=== PATIENT | male | born 1930 ===

== ENCOUNTER 2019-04-03 13:50 | Inpatient (IN) | payer MEDICARE, OTHER ==
[~2019-04-03] VITALS: Ht 180.3 cm; Wt 64.5 kg
--- NOTE | 2019-04-03 13:30 | NUR ---
PT ADMITTED FROM [facility] ER FOR ALTERED THOUGHT PROCESS. PER REPORT PT IS HAVING HALLUCINATIONS, INCREASED CONFUSION, AND NONCOMPLIANT WITH MEDS. PT IS FULL CODE. CODEWORD IS 0426. PT HAS TOP PLATE DENTURES. NO HEARING AIDS. HAS GLASSES BUT REFUSES TO WEAR THEM. FLU SHOT 2019. PNUE SHOT 2016.
[2019-04-03] MEDS ORDERED: PLAVIX75 MG PO (18:28)
[2019-04-03] MEDS ORDERED: ELIQUIS5 MG PO (18:28)
[2019-04-03] MEDS ORDERED: LISINOPRIL5 MG PO (18:29)
[2019-04-03] MEDS ORDERED: GLUCOPHAGE1000 MG PO (18:29)
[2019-04-03] MEDS ORDERED: GLIMEPIRIDE2 MG PO (18:30)
[2019-04-03] MEDS ORDERED: LOPRESSOR25 MG PO (18:30)
[2019-04-03] MEDS ORDERED: PEPCID AC20 MG PO (18:31)
[2019-04-03] MEDS ORDERED: SEROQUEL50 MG PO (18:32)
--- NOTE | 2019-04-03 19:47 | NUR ---
RECEIVED IN DAYROOM. SITTING IN A RECLINING CHAIR AT THE TABLE. CALM AND COOPERATIVE WITH CARE AND ASSESSMENT. CONFUSED. REDIRECT AND REORIENT NEEDED. CONTINUES TO SIT QUIETLY IN RECLINER. CONTINUE PLAN OF CARE
[2019-04-03 22:55] VITALS: BP 138/78
[2019-04-04 05:34] VITALS: BP 131/64
[2019-04-04 06:20] LABS: BASOPHILS 0.5 % (0-2); EOSINOPHILS 1.2 % (0-7); HEMATOCRIT 41.7 % (42.0-54.0); HEMOGLOBIN 13.9 g/dL (13.5-17.5); IMMATURE GRANULOCYTES 0.1 % (0-5); LYMPHOCYTES 20.2 % (15-50); MCH 31.1 pg (26.0-34.0); MCHC 33.3 g/dL (31.0-37.0); MCV 93.3 fL (80.0-100.0); MEAN PLATELET VOLUME 9.1 fL (7.4-10.4); MONOCYTES 10.9 % (2-11); NEUTROPHILS 67.1 % (40-80); PLATELET COUNT 362 10x3/uL (130-400); RBC 4.47 10x6/uL (4.20-6.10); RDW 13.3 % (11.5-14.5); WBC 7.6 10x3/uL (4.8-10.8)
[2019-04-04 06:59] LABS: ALBUMIN 3.4 g/dL (3.4-5.0); ALKALINE PHOSPHATASE 111 U/L (46-116); ALT (SGPT) 39 U/L (10-68); BILIRUBIN - TOTAL 1.07 mg/dL (0.2-1.3); CALC OSMOLALITY 291 mosm/kg (275-300); CALCIUM 9.5 mg/dL (8.5-10.1); CARBON DIOXIDE 26.5 mmol/L (21.0-32.0); CHLORIDE - SERUM 104 mmol/L (98-107); CHOLESTEROL, TOTAL 235 mg/dL (0-200); GLUCOSE 213 mg/dL (74-106); HDL CHOLESTEROL 59 mg/dL (32-96); LDL CHOLESTEROL 163 mg/dL (0-100); LDL-HDL RATIO 2.8 ratio (1.5-3.5); PROTEIN - SERUM 7.2 g/dL (6.4-8.2); SODIUM 141 mmol/L (136-145); THYROID STIMULATING HORMONE 0.73 uIU/mL (0.36-3.74); TRIGLYCERIDE 65 mg/dL (30-200); UREA NITROGEN 27 mg/dL (7-18); eGFR NON AFRICAN AMERICAN 75 mL/min (90-120)
[2019-04-04 08:00] VITALS: BP 126/61
[2019-04-04 20:30] VITALS: BP 129/58
--- NOTE | 2019-04-05 00:09 | NUR ---
REC'D SITTING IN THE DAYROOM. NO INSIGHT INTO THE REASON FOR HOSPITALIZATION. ORIENTED TO SELF ONLY. ADMINISTER MEDS AND MONITOR COMPLIANCE. REORIENT NEEDED. MED COMPLIANT. POOR REORENTATION DUE TO IMPAIRED ABILITY TO PROCESS AND RETAIN INFORMATION. CONTINUE POC AND PROVIDE SAFE ENVIRONMENT.
[2019-04-05 08:11] LABS: RAPID PLASMA REAGIN Non Reactive (Non Reactive)
[2019-04-05 08:51] VITALS: BP 148/77
--- NOTE | 2019-04-05 14:34 | PSY ---
PATIENT NAME:ARUNA REECE MEDICAL RECORD: [id number] : [birth year] LOCATION:[facility] ADMISSION DATE: 04/03/19 ACCOUNT: [id number] PSYCHIATRIC EVALUATION DATE OF EVALUATION: 04/04/19 IDENTIFYING DATA: The patient is 88 years old and he is admitted to the hospital on a voluntary basis. CHIEF COMPLAINT: Confusion. HISTORY OF PRESENT ILLNESS: The patient comes from home, but prior to being at home, he was at [facility]. Apparently, he was admitted for observation because of the confusion. At that time, he was noncompliant with medications found to be actively hallucinating and significantly confused. PAST MEDICAL HISTORY: Largely unknown as the patient is an extremely poor historian. He is on Glucophage and Amaryl, so I presume he has diabetes of course and he is also on metoprolol, so I presume he has hypertension. He also takes blood thinners, specifically Plavix for reasons that are unknown to me. He cannot explain. PAST PSYCHIATRIC HISTORY: Unknown. FAMILY HISTORY: Unknown. SOCIAL HISTORY: The patient is unmarried. He says he has no children. He denies that he has ever been an alcoholic or a user of drugs, but he is a very unreliable historian and is clearly quite confused and inattentive. MENTAL STATUS EXAMINATION: The patient is awake, alert and oriented to person only. His mood is flat. His affect is constricted. Thought processes are circumstantial. Memory, concentration, and abstraction abilities are moderately impaired and he denies that he would seek to harm himself or others as well as psychotic symptoms. ASSETS: Supportive family members. LIABILITIES: Limited insight. 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 AXIS II: None. AXIS III: Diabetes and hypertension. AXIS IV: Moderate. AXIS V: Global assessment of functioning is 30. PLAN: At this time, the patient is admitted to the hospital for a comprehensive medical, psychological, and social evaluation. He will be treated with both mood stabilizing and memory enhancing medications. His long-term prognosis is guarded. TRANSINT:[id number] Voice Confirmation ID: [id number] DOCUMENT ID: [id number] BENOIT GEORGE MD at 1434 CC: [id number] DICTATION DATE: 04/04/19 1628 TOOL GRINDER: 04/04/19 1649 ADM IN [facility] [address] [id number]
[2019-04-05 14:59] VITALS: Ht 180.3 cm; Wt 64.5 kg
[2019-04-05 15:42] LABS: APPEARANCE TURBID (CLEAR); BILIRUBIN NEGATIVE (NEGATIVE); COLOR YELLOW (YELLOW); GLUCOSE 250 mg/dL (NEGATIVE); KETONE SMALL mg/dL (NEGATIVE); NITRITE NEGATIVE (NEGATIVE); PROTEIN 2+ mg/dL (NEGATIVE); UROBILINOGEN NORMAL (NORMAL)
[2019-04-05 15:43] LABS: BACTERIA MODERATE /hpf (NEGATIVE); EPITHELIAL CELLS NSEEN /hpf (0-5); RED CELLS - URINE >50 /hpf (0-5); WHITE CELLS - URINE NSEEN /hpf (NEGATIVE)
--- NOTE | 2019-04-05 16:13 | NUR ---
Encouraging the patient to drink fluids.
--- NOTE | 2019-04-05 16:33 | NUR ---
B) The patient is awake and alert, he is pleasant. He is confused and has poor insight into his situation. Encourage the patient to drink fluids. He is unsteady and currently sitting in the day room. I) Provide presbed meds. R) The patient is compliant with meds. P) Continue POC.
[2019-04-05 20:20] VITALS: BP 110/50
--- NOTE | 2019-04-05 23:39 | NUR ---
REC'D PATIENT SITTING IN A CHAIR IN THE DAYROOM. ORIENTED TO SELF ONLY. RESTLESS AND MOVES ABOUT IN HIS CHAIR. WHEN ASKED PATIENT IF HE KNOWS WHERE HE IS HE REPLIES "RIGHT ABOUT IN HERE SOMEWHERE. ANSWERED ONE QUESTION APPROPRIATELY. WHEN ASKED HOW ARE YOU FEELING PT RELATED "NOT SO HOT." ADMINISTER MEDS AND MONITOR COMPLIANCE. REORIENT NEEDED. MED COMPLIANT. POOR REORIENTAION DUE TO IMPAIRED ABILITY TO COMPREHEND AND RETAIN INFORMATION. CONTINUE POC AND PROVIDE SAFE ENVIRONMENT.
[2019-04-06 09:31] VITALS: BP 151/88
--- NOTE | 2019-04-06 14:11 | NUR ---
The patient is pleasant, he is confused and he is is oriented to his name, he has poor insight into his situation. He has not shown any hallucinating behavior today. No pointing at objects or talking to unseen others. He is in a gerichair. Provide prescribed meds. The patient is compliant with meds, he takes his meds whole, but he does well with applesauce as he was trying to chew the pills. Continue POC.
--- NOTE | 2019-04-06 15:57 | PN ---
PATIENT:ARUNA REECE MEDICAL RECORD: [id number] LOCATION:[facility] ADMISSION DATE: 04/03/19 PROGRESS NOTE DATE OF SERVICE: 04/05/2019 SUBJECTIVE: The patient's case was discussed with staff. He has no new complaint. OBJECTIVE: The patient is in good behavioral control with limited insight about his condition. ASSESSMENT: Dementia. PLAN: Current medicines and therapies have been reviewed. The patient has not been combative here nor have I observed hallucinations. I am going to start him on Namenda for his memory impairment. He will be monitored for clinical changes associated with its use. TRANSINT:[id number] Voice Confirmation ID: [id number] DOCUMENT ID: [id number] BENOIT GEORGE MD at 1557 CC: [id number] DICTATION DATE: 04/05/191724 GED PREPARATION TEACHER: 04/05/19 1833 ADM IN [facility] [address] [id number]
[2019-04-06 19:40] VITALS: BP 120/72
--- NOTE | 2019-04-07 02:19 | NUR ---
B) Patient is alert and oriented to self, very confused, talks in wordsalad, I) Administered scheduled medications as ordered, monitored for safety, R) Medication compliant, no hallucinations noted this shift P) COntinue plan of care.
[2019-04-07 08:29] VITALS: BP 109/57
--- NOTE | 2019-04-07 11:50 | NUR ---
The patient is awake, he is quiet, and calm, he has not shown any aggression or any hallucinations. He can assist with transfers. Provide prescribed meds. The patient is compliant with meds. Monitor the patients behavior.
--- NOTE | 2019-04-07 12:38 | PN ---
PATIENT:ARUNA REECE MEDICAL RECORD: [id number] LOCATION:[facility] ADMISSION DATE: 04/03/19 PROGRESS NOTE DATE OF SERVICE: 04/06/2019 SUBJECTIVE: The patient's case was discussed with staff. He has no new complaint. OBJECTIVE: The patient is in good behavioral control. He has poor insight about his condition. ASSESSMENT: Dementia. PLAN: Current medicines have been reviewed and will be maintained. Long-term prognosis is guarded. TRANSINT:[id number] Voice Confirmation ID: [id number] DOCUMENT ID: [id number] BENOIT GEORGE MD at 1238 CC: [id number] DICTATION DATE: 04/06/19 1618 SHAPE BRICK MOLDER: 04/06/192008 ADM IN [place] [id number] [place] [address]
[2019-04-07 20:00] VITALS: BP 90/45
--- NOTE | 2019-04-07 23:36 | NUR ---
B) patient is alert and oriented to self, very confused, wordsalad, hallucinations (visual), restlessness, I) Administered scheduled medications as ordered, monitored closely for safety R) Mediation compliant, resting now quietly in his bed, P) Continue plan of care.
[2019-04-08 08:00] VITALS: BP 111/78
--- NOTE | 2019-04-08 10:00 | NUR ---
B) PATIENT IS AWAKE AND ALERT TO SELF, SPEAKS IN WORD-SALAD. I) ADMINISTERED SCHEDULED MEDICATION. MONIOR CLOSELY FOR SAFETY. REDIRECT AND REORIENT NEEDD. R) MEDICATION COMPLIANT. RESTING IN RECLINER, NO HALLUCINATIONS NOTED. P) CONTINUE PLAN OF CARE.
--- NOTE | 2019-04-08 19:47 | NUR ---
RECEIVED IN BEDROOM. RESTING IN BED WITH EYES OPEN. CALM AND COOPERATIVE WITH CARE AND ASSESSMENT. NO SIGNS OF HALLUCINATIONS AT THIS TIME. REDIRECT AND REORIENT NEEDED. RESTING IN BED WITH EYES CLOSED. CONTINUE PLAN OF CARE
[2019-04-08 20:09] VITALS: BP 120/57
[2019-04-08 20:44] VITALS: BP 120/57
[2019-04-09 09:36] VITALS: BP 115/70
--- NOTE | 2019-04-09 14:50 | NUR ---
Nutrition Follow-up: Diet: Diabetic/Cardiac PO intake: ~29% average x last 9 meals Last BM: 04/09/19. WT: 143# (04/08/19); Admit wt: 150# (04/03/19) Significant meds: megace, SSI, metformin, glimepiride. Labs: Glu 129 mg/dL Continue current diet. May consider liberalizing diet to just diabetic to encourage PO intake. Continue megace as medically feasible. Will add oral nutrition supplements to diet order. Encourage PO intake. RD following.
--- NOTE | 2019-04-09 15:04 | NUR ---
CALM, QUIET, APPETITE POOR, VERY CONFUSED, NO ADVERSE BEHAVIORS NOTED, CONT POC DIRECTED.
--- NOTE | 2019-04-09 15:13 | PN ---
PATIENT:ARUNA REECE MEDICAL RECORD: [id number] LOCATION:[facility] ADMISSION DATE: 04/03/19 PROGRESS NOTE DATE OF SERVICE: 04/08/2019 SUBJECTIVE: The patient's case was discussed with staff. He has no new complaint. OBJECTIVE: The patient denies intent to harm himself or others. He is tolerating his medications reasonably well. ASSESSMENT: Dementia. PLAN: Current medicines have been reviewed. I am going to maintain them. His long-term prognosis is guarded. TRANSINT:[id number] Voice Confirmation ID: [id number] DOCUMENT ID: [id number] BENOIT GEORGE MD at 1513 CC: [id number] DICTATION DATE: 04/08/19 1428 INSIDE PARTS SALES: 04/08/19 1537 ADM IN [place] [id number] [place] [address]
--- NOTE | 2019-04-09 15:13 | PN ---
PATIENT:ARUNA REECE MEDICAL RECORD: [id number] LOCATION:[facility] ADMISSION DATE: 04/03/19 PROGRESS NOTE DATE OF SERVICE: 04/07/2019 SUBJECTIVE: The patient's case was discussed with staff. He has no new complaint. OBJECTIVE: The patient has had no acute evidence of psychosis today. He is certainly advanced in his dementia and needs 42-ggck-h-day supervision. ASSESSMENT: Dementia. PLAN: Supportive and educational interventions were made. Long-term prognosis is guarded. TRANSINT:[id number] Voice Confirmation ID: [id number] DOCUMENT ID: [id number] BENOIT GEORGE MD at 1513 CC: [id number] DICTATION DATE: 04/07/19 1249 WATER AND GAS HELPER: 04/07/19 1422 ADM IN [place] [id number] [place] [address]
[2019-04-09 23:37] VITALS: BP 79/34
--- NOTE | 2019-04-10 00:20 | NUR ---
RECEIVED IN PATIENT ROOM. RESTING IN BED WITH EYES CLOSED. RESPONDS TO VOICE. CALM AND COOPERATIVE WITH CARE AND ASSESSMENT. NO SIGNS OF HALLUCINATIONS. REDIRECT AND REORIENT NEEDED. RESTING IN BED WITH EYES CLOSED AT THIS TIME. CONTINUE PLAN OF CARE.
--- NOTE | 2019-04-10 09:00 | NUR ---
PATIENT IS ALERT TO PERSON, CALM AND COOPERATIVE WITH CARE AND ASSESSMENT. COMPLIANT WITH MEDICATIONS. CONTINUE POC.
[2019-04-10 09:25] VITALS: BP 114/47
--- NOTE | 2019-04-10 15:04 | PN ---
PATIENT:ARUNA REECE MEDICAL RECORD: [id number] LOCATION:[facility] ADMISSION DATE: 04/03/19 PROGRESS NOTE DATE OF SERVICE: 04/09/2019 SUBJECTIVE: The patient's case was discussed with staff. He has no new complaint. OBJECTIVE: The patient denies intent to harm himself or others. He is quite impaired cognitively. ASSESSMENT: Dementia. PLAN: The patient's hallucinations seemed to have improved. In fact, I do not notice any since this weekend. He will be maintained on current medicines. His long-term prognosis is guarded. TRANSINT:[id number] Voice Confirmation ID: [id number] DOCUMENT ID: [id number] BENOIT GEORGE MD at 1504 CC: [id number] DICTATION DATE: 04/09/19 1535 WOOD DOWEL MACHINE OPERATOR: 04/09/19 1847 ADM IN [id number] [place] [address]
--- NOTE | 2019-04-10 20:15 | NUR ---
RECEIVED IN BEDROOM RESTINGIN BED WITH EYES OPEN. CONFUSED. CALM AND COOPERATIVE WITH CARE AND ASSESSMENT. NO SIGNS OF HALLUCINATIONS AT THIS TIME. REDIRECT AND REORIENT NEEDED. CONTINUES TO REST IN BED WITH EYES OPEN. CONTINUE PLAN OF CARE
[2019-04-11 09:00] VITALS: BP 99/71
--- NOTE | 2019-04-11 11:03 | NUR ---
THE PATIENT IS SLEEPY THIS AM, HE WAS NOT ABLE TO WAKE UP FOR HIS BREAKFAST OR AM MEDS. HE IS NOT HALLUCINATING. HE IS NOT AGGRESSIVE. PROVIDE PRESCRIBED MEDS. MONITOR HIS BEHAVIOR. THE PATIENT CONTINUES TO SLEEP. CONTINUE POC.
--- NOTE | 2019-04-11 12:33 | PN ---
PATIENT:ARUNA REECE MEDICAL RECORD: [id number] LOCATION:[facility] ADMISSION DATE: 04/03/19 PROGRESS NOTE DATE OF SERVICE: 04/10/2019 SUBJECTIVE: The patient's case was discussed with staff. He has no new complaint. OBJECTIVE: The patient is tolerating his medicines well. Unfortunately, he still is not eating very well. ASSESSMENT: Dementia. PLAN: The patient's Namenda will be increased to 5 mg twice daily. Namenda is being used to treat his underlying cognitive impairment. He will be monitored for clinical changes associated with its use. TRANSINT:[id number] Voice Confirmation ID: [id number] DOCUMENT ID: [id number] BENOIT GEORGE MD at 1233 CC: [id number] DICTATION DATE: 04/10/191549 HIGH SCHOOL SOCIAL STUDIES TEACHER: 04/10/192035 ADM IN [facility] [address] [place] [address]
[2019-04-11 18:37] LABS: BASOPHILS 0.1 % (0-2); EOSINOPHILS 0 % (0-7); HEMATOCRIT 43.8 % (42.0-54.0); HEMOGLOBIN 13.9 g/dL (13.5-17.5); IMMATURE GRANULOCYTES 0.3 % (0-5); LYMPHOCYTES 7.6 % (15-50); MCHC 31.7 g/dL (31.0-37.0); MCV 97.6 fL (80.0-100.0); MEAN PLATELET VOLUME 10.4 fL (7.4-10.4); MONOCYTES 7.2 % (2-11); NEUTROPHILS 84.8 % (40-80); PLATELET COUNT 290 10x3/uL (130-400); RBC 4.49 10x6/uL (4.20-6.10); RDW 14.6 % (11.5-14.5); WBC 10.8 10x3/uL (4.8-10.8)
[2019-04-11 19:01] LABS: ANION GAP 23.2 mmol/L (8-16); CALCIUM 9.3 mg/dL (8.5-10.1); CARBON DIOXIDE 21.7 mmol/L (21.0-32.0); CREATININE - SERUM 2.7 mg/dL (0.6-1.3); POTASSIUM - SERUM 4.9 mmol/L (3.5-5.1)
[2019-04-11 21:55] VITALS: BP 81/40
--- NOTE | 2019-04-12 07:30 | NUR ---
IV STARTED IN LEFT FOREARM X 1 ATTEMPT WITH #22 G ANGIOCATH PER KIM PARR RN. BOLUS OF 250CC NORMAL SALINE GIVEN. UPON COMPLETION B/P=103/58 CONTINUOUS IV OF NORMAL SALINE AT 125CC/HR. THEREAFTER.
[2019-04-12 08:00] VITALS: BP 103/58
--- NOTE | 2019-04-12 11:19 | NUR ---
Nutrition Follow-up: Diet: Diabetic/Cardiac + Glucerna with meals PO intake: ~19% average x last 9 meals Last BM: 04/10/19. WT: 143# (04/08/19); Admit wt: 150# (04/03/19) Significant meds: megace (started 04/06/19), SSI, metformin, glimepiride. Labs noted: glu 239mg/dL Weight loss of -7# noted. Continue diet and oral nutrition supplements. Consider liberalizing diet to promote PO intake. Continue Megace as medically feasible. Encourage PO intake. RD following.
--- NOTE | 2019-04-12 15:32 | PN ---
PATIENT:ARUNA REECE MEDICAL RECORD: [id number] LOCATION:[facility] ADMISSION DATE: 04/03/19 PROGRESS NOTE DATE OF SERVICE: 04/11/2019 SUBJECTIVE: The patient's case was discussed with staff. He has no new complaint. OBJECTIVE: The patient denies intent to harm himself or others. He is tolerating his medicines well. ASSESSMENT: Dementia. PLAN: Placement in a local long term is being sought. The process is underway and I think with the exception of him not eating adequately, he is behaviorally set for discharge. He has had no aggression. His hallucinations have gone away. He is still quite confused as one would expect, but on the whole, he is better. TRANSINT:[id number] Voice Confirmation ID: [id number] DOCUMENT ID: [id number] BENOIT GEORGE MD at 1532 CC: [id number] DICTATION DATE: 04/11/19 1240 CHIEF OF VITAL STATISTICS: 04/11/19 1326 ADM IN [place] [address] [place] [id number]
--- NOTE | 2019-04-12 18:27 | NUR ---
ALERT, CALM, COOPERATIVE, IV INFUSING NS AT 8 HR RATE, NO S/S INFILTRATION NOTED. NO BEHAVIORAL ISSUES NOTED. COMPLIANT WITH MEDS.
[2019-04-12 21:12] VITALS: BP 94/42
--- NOTE | 2019-04-12 22:39 | NUR ---
RECEVIED PATIENT IN DAYROOM, IV NORMAL SALINE INFUSING TO LEFT FOREARM WITHOUT DIFFICULTY, IV SITE PATENT AND WITHOUT EDEMA OR REDNESS. PATIENT COUGHING AT TIMES. PUPILS ARE CONSTRICTED. REFUSED MEDS THIS EVENING. WILL MONITOR PATIENT.
[2019-04-13 08:30] VITALS: BP 88/60
--- NOTE | 2019-04-13 09:42 | NUR ---
The patient moved all around in the day room and must have flailed his arms as this nurse approached him as his IV cath is out. The Infusion continued to run. D/c'd the fluids and removed the cath off of him.
--- NOTE | 2019-04-13 11:00 | NUR ---
Restarted the patient's IV. Inserted a 22g catheter with blood return. The IV site is in his right upper arm. He is not speaking, he mostly stares out or he is sleeping. He does talk and look out as if someone is there. He has not shown any aggression today. Provide prescribed meds. The patient is compliant with meds. Continue POC.
--- NOTE | 2019-04-13 13:49 | PN ---
PATIENT:ARUNA REECE MEDICAL RECORD: [id number] LOCATION:[facility] ADMISSION DATE: 04/03/19 PROGRESS NOTE DATE OF SERVICE: 04/12/2019 SUBJECTIVE: The patient's case was discussed with staff. He has no new complaint. OBJECTIVE: The patient has become significantly and seriously dehydrated. He is receiving IV support right now. His dementia is advanced. ASSESSMENT: Dementia. The patient will be maintained on current medicines. Hospice is being consulted and it appears that he is not going to significantly improve. TRANSINT:[id number] Voice Confirmation ID: [id number] DOCUMENT ID: [id number] BENOIT GEORGE MD at 1349 CC: [id number] DICTATION DATE: 04/12/19 1615 SLASHER HAND: 04/13/19 0013 ADM IN [facility] [address] [place] [address]
[2019-04-13 15:22] LABS: CARBON DIOXIDE 20.3 mmol/L (21.0-32.0); POTASSIUM - SERUM 4.4 mmol/L (3.5-5.1)
[2019-04-13 15:25] LABS: CREATININE - SERUM 1.8 mg/dL (0.6-1.3)
[2019-04-13 15:26] LABS: ANION GAP 18.1 mmol/L (8-16)
--- NOTE | 2019-04-13 15:30 | NUR ---
The Lab called with a report of critical sodium 162 and chloride [address] Giordano awaiting her response.
[2019-04-13] MEDS ORDERED: NAMENDA5 MG PO (15:46)
[2019-04-13] MEDS ORDERED: Megace ES [CHEMO] PO (15:46)
--- NOTE | 2019-04-13 17:31 | NUR ---
FSBS 196, 2 UNITS OF HUMALOG PROVIDED.
--- NOTE | 2019-04-13 20:03 | NUR ---
PATIENT IS CONFUSED, POOR INSIGHT, D5W IN FUSING WITHOUT DIFFICULTY TO RIGHT FOREARM. DIMINISHED BREATH SOUNDS. PATIENT IS BEING DISCHARGED TOMORROW ON HOSPICE.
--- NOTE | 2019-04-14 01:07 | NUR ---
PATIENT REMOVED IV. THIS NURSE CLEANED IV SITE & PLACED PREESURE DRESSING OVER SITE. WILL CONTINUE TO MONITOR.
[2019-04-14 02:22] VITALS: BP 100/50
[2019-04-14 09:33] LABS: ANION GAP 17.6 mmol/L (8-16); CALCIUM 9.3 mg/dL (8.5-10.1); CARBON DIOXIDE 19.9 mmol/L (21.0-32.0); CREATININE - SERUM 1.6 mg/dL (0.6-1.3); POTASSIUM - SERUM 4.5 mmol/L (3.5-5.1)
--- NOTE | 2019-04-14 09:54 | NUR ---
CRITICAL CHLORIDE CALLED FROM LAB, TEXT DR. DEE. LET HER KNOW THE PATIENT IS SUPPOSED TO BE D/C'D TODAY TO HOME WITH [facility].
--- NOTE | 2019-04-14 10:01 | NUR ---
Called the patient's son and the son stated that they do not have the hospital bed and he would like to wait to receive his Dad until they get the hospital bed. Asked him to call us when the bed arrives. Will fax d/c order and med list to [facility].
--- NOTE | 2019-04-14 10:37 | NUR ---
The patient is awake today, he is not aggressive at this time. He can stand to transfer with assist. Provide prescribed meds. The patient is compliant with meds. Continue POC.
--- NOTE | 2019-04-14 11:50 | PN ---
PATIENT:ARUNA REECE MEDICAL RECORD: [id number] LOCATION:[facility] ADMISSION DATE: 04/03/19 PROGRESS NOTE DATE OF SERVICE: 04/13/2019 SUBJECTIVE: The patient's case was discussed with staff. He has no new complaint. OBJECTIVE: The patient's dementia is advanced. Every effort has been made to get him to eat and drink without success. He has been dehydrated, but he is a little bit more alert today with the IV hydration, which is only a temporary fix. ASSESSMENT: Dementia. PLAN: The patient is going to be discharged to home tomorrow to be with his family and he will be under hospice care. Unfortunately, his prognosis is exceedingly poor. TRANSINT:[id number] Voice Confirmation ID: [id number] DOCUMENT ID: [id number] BENOIT GEORGE MD at 1150 CC: [id number] DICTATION DATE: 04/13/19 1543 PRICING ASSOCIATE: 04/13/19 2139 ADM IN [facility] [address] [place] [address]
--- NOTE | 2019-04-14 15:01 | NUR ---
The patient's son called and said the equipment has arrived to the house. Called EMS and they will be able to pick him up in approximately an hour.
--- NOTE | 2019-04-14 15:08 | NUR ---
The patient is shaved and dressed and belongings are packed and he is ready to go home.
--- NOTE | 2019-04-14 16:55 | NUR ---
The EMS is here and did picked edge sewing machine operator the patient to transport home. All of the belongings are sent with the patient. He is now d/c'd from alf.
--- NOTE | 2019-04-15 13:20 | PN ---
PATIENT:ARUNA REECE MEDICAL RECORD: [id number] LOCATION:[facility] ADMISSION DATE: 04/03/19 PROGRESS NOTE DATE OF SERVICE: 04/14/2019 SUBJECTIVE: The patient's case was discussed with staff. He has no new complaint. OBJECTIVE: The patient is in good behavioral control with limited insight about his condition. He does tolerate his medicines reasonably well. He is not eating adequately. His is dementia is end-stage. ASSESSMENT: Dementia. PLAN: The patient will be discharged to home today. Hospice is going to see him on an outpatient basis. He will be maintained on current medicines, which I have reviewed. TRANSINT:[id number] Voice Confirmation ID: [id number] DOCUMENT ID: [id number] BENOIT GEORGE MD at 1320 CC: [id number] DICTATION DATE: 04/14/19 1159 CHANNEL DEVELOPMENT DIRECTOR: 04/14/19 1348 DIS IN 04/14/19 [facility] [address] [place] [address]
--- NOTE | 2019-04-17 13:51 | DS ---
PATIENT:ARUNA REECE :[birth year] MEDICAL RECORD: [id number] DISCHARGE SUMMARY ADMISSION DATE: 04/03/19 DISCHARGE DATE: 04/14/19 IDENTIFYING DATA: The patient is 88 years old and he was admitted to the hospital on a voluntary basis because of confusion. The patient comes to us from home and has a prior history of dementia. He was confused and was taken to the [facility] where they subsequently transferred him here. Apparently, he has been noncompliant with medications, actively hallucinating and disruptive. HOSPITAL COURSE: The patient was admitted to the hospital and fully evaluated from both a medical, psychological, and social standpoint. He was treated with both mood stabilizing and memory enhancing medications. Adjustments were made until he had reached maximum hospital benefit and then he was transitioned out of the hospital to a setting where he could receive 24-hour a day care. 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 AXIS II: None. AXIS III: Diabetes and hypertension. AXIS IV: Moderate. AXIS V: Global assessment of functioning is 35. PLAN: At the time of discharge, the patient was in good behavioral control with limited insight about his condition. He was tolerating his medicines well. His long-term prognosis is guarded. He is not acutely dangerous to himself or others. Followup is to be with his primary care physician. TRANSINT:[id number] Voice Confirmation ID: [id number] DOCUMENT ID: [id number] BENOIT GEORGE MD at 1351 CC: [id number] DICTATION DATE: 04/16/19 1630 WOOD CRAFTSMAN: 04/17/19 0726 DIS IN 04/14/19 [id number] [place] [address]
== END 2019-04-14 17:00 | disposition home health service (06) | DRG 57 ==
LOC: D.PSYCH 13:50
PROVIDERS: Family Medicine; ADMIT Psychiatry & Neurology Psychiatry; ATTEND Psychiatry & Neurology Psychiatry
DX: G30.9 Alzheimer's disease, unspecified (principal); I48.20 Chronic atrial fibrillation, unspecified; F02.80 Dementia in other diseases classified elsewhere, unspecified severity, without behavioral disturbance, psychotic disturbance, mood disturbance, and anxiety; E11.9 Type 2 diabetes mellitus without complications; I10 Essential (primary) hypertension; I25.10 Atherosclerotic heart disease of native coronary artery without angina pectoris; E78.5 Hyperlipidemia, unspecified; R26.9 Unspecified abnormalities of gait and mobility; Z95.0 Presence of cardiac pacemaker